=== PATIENT | female | born 1985 | race Caucasian/White ===

== ENCOUNTER 2020-10-24 02:35 | Emergency (ER) | payer MEDICAID, SELFPAY ==
[2020-10-24 03:27] VITALS: BP 129/93; PULSE 93; RESP 20; TEMP 36.9; O2SAT 96; BMI 33.7
--- NOTE | 2020-10-24 04:15 | PC.NURSE ---
at bedside for patient evaluation. Pt requested and given cold pack for ?abscess to left forearm/wrist. Will continue to monitor.
--- NOTE | 2020-10-24 04:20 | ED_ITS ---
HPI - Skin/Abscess/Foreign Bdy General Chief complaint: Wound/Laceration Stated complaint: Abscess Time Seen by Provider: 10/24/20 04:19 Source: patient Mode of arrival: ambulatory History of Present Illness HPI narrative: This is a 35-year-old female who regularly injects cocaine and states that for 2 days she had worsening redness over the left forearm but denies any associated fever, chills, shortness of breath. She states that the p [place] on her arm were where the redness had been, but states that the redness improved and seemed to become more localized to the site of injection. Related Data Previous Rx's Medication Instructions Recorded sulfamethoxazole-trimethoprim 1 tab PO Q12H 7 Days #14 tab 10/24/20 [Bactrim DS] Allergies Allergy/AdvReac Type Severity Reaction Status Date / Time No Known Allergies Allergy Verified 10/24/20 03:31 Review of Systems Review of Systems: Pertinent positives and negatives as stated in HPI 10 point review of systems is otherwise negative. PMFSH Past Medical History Source: nursing notes reviewed Medical History Drug abuse Social History Social History Advance Directives: No Physical Exam Vital Signs: Vital Signs: Last Vital Signs Temp 98.5 F 10/24/20 03:27 Pulse 93 10/24/20 03:27 Resp 20 10/24/20 06:00 BP 129/93 H 10/24/20 03:27 Pulse Ox 100 10/24/20 06:00 Body Mass Index 33.7 VITAL SIGNS: Reviewed. GENERAL: Well developed, well nourished, in no acute distress. OROPHARYNX: no oral lesions noted, posterior pharynx clear NECK: Supple, no adenopathy LUNGS: Normal breath sounds. No adventitious sounds or accessory muscle use. SpO2<96> CARDIOVASCULAR: Regular rate and rhythm without noted murmurs ABDOMEN: Soft, non-tender, non-distended with bowel sounds. LEFT UPPER EXTREMITY: There is noted large abscess to distal forearm with palpable fluctuance and minimal surrounding induration, capillary refill is less than 3 seconds and testing is otherwise neurovascularly intact. NEUROLOGIC: Alert and oriented x 4. 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 This was incision and drainage without complications and patient was given antibiotics here in the emergency department and then provided with a script for the remaining course. She was discharged in stable condition with instructions to follow-up with her primary care provider. Procedures Abscess I/D Site: upper extremity Side (if applicable): left Sedation/analgesia: other Local Anesthetic: other anesthetic (LET) Amount of anesthesia used (mL): 2 Technique: incised with blade Amount of fluid expressed (mL): 50 Sent for culture/gram staining?: No Irrigation: Yes Packing used?: none Complications: pain Discharge Plan Discharge Clinical Impression: Abscess Patient Disposition: Home, Self-Care Instructions: Abscess Incision and Drainage (DC) Additional Instructions: 1. Recommend [id number] Tylenol/ibuprofen as needed for pain control. 2. You may cleanse the area with soap and water and try to keep it covered with gauze until it has healed. 3. Complete the entire course of antibiotics and please follow-up with your primary care provider. Do not hesitate to return to the emergency department should you experience any acute worsening of symptoms. Prescriptions: New sulfamethoxazole-trimethoprim [Bactrim DS] 800-160 mg tablet 1 tab PO Q12H 7 Days Qty: 14 RF: 0 Referrals: Physician,None [Primary Care Provider] - 2 days Interventions: ED Discharge Assessment Last Done: 10/24/20 06:56 Discharge Date/Time: 10/24/20 06:56
[2020-10-24] MEDS: Lidocaine/Epineph/Tetracaine 3 ML GEL.PF.APP 1 ML TOPICAL ×2 (04:29→05:44)
[2020-10-24] MEDS: Ketorolac Tromethamine 15 MG/ML VIAL IM (04:29)
--- NOTE | 2020-10-24 05:28 | PC.NURSE ---
Patient states my ride is here, can I go home? present during interaction. Pt states that lidocaine gel is effective in numbing abscess area (where applied), and states can I just get antibiotics and go?
--- NOTE | 2020-10-24 05:38 | PC.NURSE ---
Patient expressing frustrations regarding wait to have abscess drained. Pt states the lidocaine wore off now. i'm just gonna go home and drain it myself or something. I've been here for like 6 hours and this is just ridiculous. nearby during this statement, states I will be there momentarily . Lidocaine topical to be reapplied.
[2020-10-24 06:00] VITALS: RESP 20; O2SAT 100
[2020-10-24] MEDS: Lidocaine HCl 2 % MPF 5 ML VIAL SUBCUT (06:42)
== END 2020-10-24 06:56 | disposition home or self-care (01) ==
PROVIDERS: Emergency Provider Student in an Organized Health Care Education/Training Program
DX: L02.414 Cutaneous abscess of left upper limb (principal); F14.10 Cocaine abuse, uncomplicated
CPT/HCPCS: 10060; 96372; 99284; J1885

== ENCOUNTER 2023-11-29 09:55 | Outpatient (REF) | payer MEDICAID, SELFPAY | END 2023-11-29 09:56 | disposition home or self-care (01) | LOC: HO.HOSX 09:55 | PROVIDERS: Visit Provider Orthopaedic Surgery | DX: Z13.89 Encounter for screening for other disorder (principal) ==

== ENCOUNTER 2024-01-10 12:50 | Outpatient (REF) | payer OTHER, SELFPAY ==
--- NOTE | ~2024-01-10 | XR_ITS ---
EXAMINATION: XR PELVIS CLINICAL INFORMATION: Hip pain COMPARISON: [facility] 02/19/2012 TECHNIQUE: AP view of the pelvis. FINDINGS: No acute fracture or dislocation. Status post right hip arthroplasty with periprosthetic lucency along the femoral stem tip and at the cement bone interface of the greater trochanter suggesting hardware loosening with surrounding heterotopic ossification. Right hip and sacroiliac joint spaces are maintained. XR/XR pelvis 1-2V IMPRESSION: 1. Status post right hip arthroplasty with periprosthetic lucency along the femoral stem tip and at the cement bone interface of the greater trochanter suggesting hardware loosening with surrounding heterotopic ossification.
== END 2024-01-10 12:51 | disposition home or self-care (01) ==
LOC: HO.HOSX 12:50
PROVIDERS: Visit Provider Orthopaedic Surgery
DX: M25.551 Pain in right hip (principal); M25.552 Pain in left hip
CPT/HCPCS: 72170; 99202

== ENCOUNTER 2024-01-10 12:50 | Outpatient (AMB) | payer OTHER, SELFPAY ==
[2024-01-10 13:19] VITALS: BMI 36.6
--- NOTE | 2024-01-10 13:19 | A.OFFVIS_ITS ---
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 Pt reports that she had a previous about 4 yrs ago. After this, she developed an infection and was placed in a medical coma for 11 days. 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 Since then, she has had 3 surgeries of the LT hip with the last one placing a temporary antibiotic spacer. Currently, she complains of spasms that wake her up, the inability to walk or move comfortably, and has been mostly wheelchair bound. She occasionally takes Tylenol and ibuprofen with mild improvement. 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 She is in a wheelchair and states she has the capacity to walk but it is too painful to do so. She describes a scenario of obstetric complications resulting in ICU stay and hip surgery. It is difficult to get a clear picture of exactly why she had hip surgery but it sounds like she had a septic hip. This was treated with temporary spacer. She continues to be unable to walk and is in severe excruciating pain. SHe was treated with antibiotics and has had no further follow up. She states she cannot walk. [facility] Medical History Drug abuse Physical Exam Vital Signs: BMI result Body Mass Index 36.6 Extrem Other: inc healed minimal motion left hip. Severe pain iwth motion. Is in a wheelchair Assessment & Plan Assessment & Plan (1) History of septic arthritis: Code(s): Z87.39 - Personal history of other diseases of the musculoskeletal system and connective tissue Category: Medical Plan: This is a 39 yo with a h/o drug abuse and septic hip treated with antibiotic spacer at an outside institution. I recommend referral to a tertiary care center. This is a complicated scenario with diminutive greater trochanter. I discussed this with her and her partnet. I will try to facilitate this. Orders: Orders XR pelvis 1-2V 01/10/24 M25.559 - Pain in unspecified hip Medications: Discontinued sulfamethoxazole-trimethoprim 800-160 mg Discontinued Reason: Patient no longer taking 1 tab PO Q12H 7 days 14 tabs 0RF Coding Level of Care Code New Pt Level 4 (87413) Diagnoses History of septic arthritis Z87.39
== END 2024-01-10 14:07 | disposition home or self-care (01) ==
PROVIDERS: Visit Provider Orthopaedic Surgery
DX: Z87.39 Personal history of other diseases of the musculoskeletal system and connective tissue (principal)
CPT/HCPCS: 99204